=== PATIENT | female | born 1990 | race Caucasian/White ===

== ENCOUNTER 2024-09-24 10:08 | Emergency (ER) | payer SELFPAY ==
[2024-09-24] VITALS (8 sets, daily range): BP systolic 104–117; BP diastolic 63–80
[~2024-09-24] VITALS: Ht 177.8 cm; Wt 64.0 kg
[~2024-09-24 10:08] MED LIST: AMOXICILLIN500 MG PO; BUSPIRONE5 MG PO
[2024-09-24 12:03] LABS: BASO% 0.5 % (0-3); EOS% 2.3 % (0-8); HEMATOCRIT 41.2 % (37.0-47.0); HEMOGLOBIN 13.6 g/dl (12.0-16.0); IMMATURE GRANULOCYTES 0.1 % (0.0-5.0); LYMPH% 27.3 % (15-41); MEAN CELL VOLUME 89.4 fL CALC (80.0-100.0); MEAN CORPUSCULAR HGB 29.5 pG CALC (26.0-32.0); MONO% 7.8 % (2-13); NEUT# 4.58 thou/uL (2.00-7.15); RED BLOOD COUNT 4.61 mill/uL (4.20-5.60)
[2024-09-24 12:19] LABS: ALBUMIN 4.9 g/dL (3.2-5.0); ALKALINE PHOSPHATASE 58 u/l (38-126); ANION GAP 16 (6-22 (CALC)); BILIRUBIN, TOTAL 0.4 mg/dL (0.02-1.3); BUN 8 mg/dL (7-17); BUN/CREATININE RATIO 10 (12-20 (CALC)); CARBON DIOXIDE 22 mmol/l (22-30); CHLORIDE 106 mmol/l (95-108); CREATININE 0.8 mg/dL (0.5-1.0); ESTIMATED GFR 100 ML/MIN (>=90 (CALC)); SGOT/AST 30 u/l (14-36); SODIUM 140 mmol/l (137-146); TOTAL PROTEIN 8.1 g/dL (6.3-8.2)
[2024-09-24] MEDS ORDERED: DOXYCYCL HYC100 M4 PO (15:12)
[2024-09-24] MEDS ORDERED: LIDOcaine HCl 1% (Local Anesth.) 20 ML VIAL IM STA (15:12)
[2024-09-24] MEDS ORDERED: cefTRIAXone SODIUM 1 GM/VIAL SDV IM ONE (15:15)
== END 2024-09-24 16:14 | disposition home or self-care (01) | DRG 153 ==
LOC: ED 10:08
PROVIDERS: Family Medicine
DX: J02.9 Acute pharyngitis, unspecified (principal); A64 Unspecified sexually transmitted disease; Z20.822 Contact with and (suspected) exposure to COVID-19